=== PATIENT | female | born 1955 | race Caucasian/White ===

== ENCOUNTER 2021-07-17 05:12 | Emergency (ER) | payer SELFPAY ==
[~2021-07-17] VITALS: Ht 165.1 cm; Wt 72.6 kg
--- NOTE | 2021-07-17 06:04 | NUR ---
BIBSELF C/O BACK PAIN RAD TO LEFT LEG S/P HELPING TO CARRY LAST NIGHT. TOOK HYDROCODONE ONE TAB LAST NIGHT NO RELIEF. PT A/OX4. TOLERATING R/A WELL WITH NO SOB.
[2021-07-17] MEDS ORDERED: LIDOCAINE 5% (PATCH) 1 EA PATCH TP SCH (07:30)
[2021-07-17] MEDS ORDERED: ONDANSETRON HCL/PF 4 MG/2 ML VIAL IVP ONE (07:30)
[2021-07-17] MEDS ORDERED: DIAZEPAM 5 MG TABLET PO ONE (07:30)
[2021-07-17] MEDS ORDERED: MORPHINE SULFATE INJ 2 MG/ML DISP.SYRIN IV ONE ×2 (07:30→09:30)
[2021-07-17] MEDS ORDERED: MORPHINE SULFATE INJ 4 MG/ML DISP.SYRIN ONE ×2 (07:52→10:03)
[2021-07-17] MEDS ORDERED: ONDANSETRON HCL/PF 4 MG/2 ML VIAL ONE (07:52)
[2021-07-17] MEDS ORDERED: DIAZEPAM 5 MG TABLET ONE (07:52)
[2021-07-17] MEDS ORDERED: MORPHINE SULFATE INJ 2 MG/ML DISP.SYRIN IM ONE (08:00)
[2021-07-17] MEDS ORDERED: ONDANSETRON 4 MG TAB.RAPDIS ONE (08:10)
[2021-07-17] MEDS ORDERED: ONDANSETRON 4 MG TAB.RAPDIS SL ONE (08:30)
[2021-07-17] MEDS ORDERED: ACETAMINOPHEN 325 MG TABLET PO ONE (09:30)
[2021-07-17] MEDS ORDERED: methylPREDNISolone SOD SUCC 125 MG/2ML VIAL IV ONE (09:30)
[2021-07-17] MEDS ORDERED: ACETAMINOPHEN 325 MG TABLET ONE (09:52)
[2021-07-17] MEDS ORDERED: DEXAMETHASONE 1 MG TABLET PO ONE (10:00)
[2021-07-17] MEDS ORDERED: CYCLOBENZAPRINE 10 MG TABLET PO ONE (10:00)
[2021-07-17] MEDS ORDERED: DEXAMETHASONE 4 MG TABLET ONE (10:04)
[2021-07-17] MEDS ORDERED: CYCLOBENZAPRINE 10 MG TABLET ONE (10:04)
[2021-07-17] MEDS ORDERED: DEXAMETHASONE 1 MG TABLET ONE (10:07)
[2021-07-17] MEDS ORDERED: OXYC-128 PO (11:53)
[2021-07-17] MEDS ORDERED: METH4TAB3 PO (11:53)
[2021-07-17 11:59] VITALS: BP 148/88
== END 2021-07-17 12:01 | disposition home or self-care (01) ==
LOC: ER 05:15
DX: M54.42 Lumbago with sciatica, left side (principal); M48.061 Spinal stenosis, lumbar region without neurogenic claudication; Z88.8 Allergy status to other drugs, medicaments and biological substances; Z88.6 Allergy status to analgesic agent; Z79.899 Other long term (current) drug therapy
CPT/HCPCS: 96372 ×2; 99284; J2270 ×2; J2405; J8540; Q0162

== ENCOUNTER 2021-07-22 22:00 | Emergency (ER) | payer SELFPAY ==
[~2021-07-22] VITALS: Ht 167.6 cm; Wt 70.3 kg
[~2021-07-22 22:00] MED LIST: METH4TAB3 PO; OXYC-128 PO
[2021-07-22 22:50] VITALS: BP 147/100
[2021-07-22] MEDS ORDERED: CYCL5TAB PO (22:55)
[2021-07-22] MEDS ORDERED: CYCLOBENZAPRINE 10 MG TABLET PO ONE (23:00)
[2021-07-22] MEDS ORDERED: MORPHINE SULFATE INJ 2 MG/ML DISP.SYRIN IM ONE (23:00)
[2021-07-22] MEDS ORDERED: MORPHINE SULFATE INJ 2 MG/ML DISP.SYRIN ONE (23:05)
[2021-07-22] MEDS ORDERED: MORPHINE SULFATE INJ 4 MG/ML DISP.SYRIN ONE (23:05)
[2021-07-22] MEDS ORDERED: CYCLOBENZAPRINE 10 MG TABLET ONE (23:05)
--- NOTE | 2021-07-22 23:42 | NUR ---
Patient discharged to home in stable condition. Written and verbal after care instructions given. Patient verbalizes understanding of instruction.
== END 2021-07-22 23:42 | disposition home or self-care (01) ==
LOC: ER 22:14
DX: M54.41 Lumbago with sciatica, right side (principal); Z88.8 Allergy status to other drugs, medicaments and biological substances; Z88.6 Allergy status to analgesic agent; Z79.899 Other long term (current) drug therapy
CPT/HCPCS: 96372; 99283; J2270 ×2

== ENCOUNTER 2021-08-12 16:48 | Emergency (ER) | payer MEDICAID ==
[~2021-08-12] VITALS: Ht 167.6 cm; Wt 72.6 kg
[~2021-08-12 16:48] MED LIST changes: +CYCL5TAB PO
--- NOTE | 2021-08-12 16:55 | NUR ---
BIB SELF C/O R SIDED RIB PAIN S/P GLF ON THE LADDE. PLACED COMFORTABLY IN BED. VITALS CHECKED.
--- NOTE | 2021-08-12 17:31 | NUR ---
XRAY DONE AT BEDSIDE
--- NOTE | 2021-08-12 17:35 | NUR ---
WHEELED PT TO RADIOLOGY DEPT FOR CT SCAN
[2021-08-12] MEDS ORDERED: MORPHINE SULFATE INJ 4 MG/ML DISP.SYRIN ONE (17:52)
[2021-08-12] MEDS ORDERED: MORPHINE SULFATE INJ 2 MG/ML DISP.SYRIN IM ONE (18:00)
[2021-08-12] MEDS ORDERED: LIDO30AD10 TP (19:17)
[2021-08-12] MEDS ORDERED: OXYC-128 PO ×2 (19:17→19:19)
[2021-08-12] MEDS ORDERED: ACET325T53 PO (19:17)
[2021-08-12] MEDS ORDERED: oxyCODONE IR immediate release 5 MG PO PRN (19:30)
[2021-08-12] MEDS ORDERED: LIDOCAINE 5% (PATCH) 1 EA PATCH TP SCH (19:30)
[2021-08-12] MEDS ORDERED: oxyCODONE IR immediate release 5 MG ONE (19:32)
[2021-08-12 19:36] VITALS: BP 156/94
--- NOTE | 2021-08-12 19:36 | NUR ---
Patient discharged to home in stable condition. Written and verbal after care instructions given. Patient verbalizes understanding of instruction. PT ambulatory with a steady gait
== END 2021-08-12 19:38 | disposition home or self-care (01) ==
LOC: ER 16:49
DX: S29.9XXA Unspecified injury of thorax, initial encounter (principal); M54.41 Lumbago with sciatica, right side; Z88.8 Allergy status to other drugs, medicaments and biological substances; Z79.899 Other long term (current) drug therapy; W18.30XA Fall on same level, unspecified, initial encounter; Y93.89 Activity, other specified; Y92.89 Other specified places as the place of occurrence of the external cause; Y99.8 Other external cause status
CPT/HCPCS: 71100; 72131; 96372; 99284; J2270

== ENCOUNTER → 2021-08-17 | Emergency (ER) | payer MEDICAID ==
[~2021-08-17] VITALS: Ht 167.6 cm; Wt 74.8 kg
[~2021-08-17] MED LIST changes: +ACET325T53 PO; +CYCLOBENZAPRINE 10 MG TABLET PO ONE; +LIDO30AD10 TP; +TRAMADOL HCL 50 MG TABLET PO ONE
[2021-08-17 20:30] VITALS: BP 145/87
== END | disposition home or self-care (01) ==
LOC: ER 19:30
DX: M54.41 Lumbago with sciatica, right side (principal); Z87.39 Personal history of other diseases of the musculoskeletal system and connective tissue; Z88.8 Allergy status to other drugs, medicaments and biological substances; Z79.899 Other long term (current) drug therapy

== ENCOUNTER 2022-09-26 20:09 | Emergency (ER) | payer MEDICAID ==
[~2022-09-26] VITALS: Ht 162.6 cm; Wt 68.0 kg
[~2022-09-26 20:09] MED LIST changes: -CYCLOBENZAPRINE 10 MG TABLET PO ONE; -TRAMADOL HCL 50 MG TABLET PO ONE
--- NOTE | 2022-09-26 20:38 | NUR ---
BIBWINNIE FROM HOME C/O SLIP & GLF IN SHOWER THIS MORNING; L WRIST AND NECK PAIN. PT A/OX4. TOLERATING R/A WELL WITH NO RESP DISTRESS. SAFETY MEASURES IN PLACE.
[2022-09-26] MEDS ORDERED: HYDROCODONE/APAP 5/325MG TABLET ONE (20:45)
[2022-09-26] MEDS ORDERED: HYDROCODONE/APAP 5/325MG TABLET PO ONE (21:00)
[2022-09-26] MEDS ORDERED: OXYC-128 PO ×3 (22:51→23:35)
[2022-09-26] MEDS ORDERED: oxyCODONE/APAP (5/325 MG) 1 UDTAB TABLET ONE (22:56)
[2022-09-26] MEDS ORDERED: oxyCODONE/APAP (5/325 MG) 1 UDTAB TABLET PO ONE (23:00)
--- NOTE | 2022-09-26 23:18 | NUR ---
Patient discharged to home in stable condition. Written and verbal after care instructions given. Patient verbalizes understanding of instruction.
[2022-09-27 00:40] VITALS: BP 138/79
[2022-10-02] MEDS ORDERED: OXYC-128 PO (15:25)
== END 2022-09-27 00:43 | disposition home or self-care (01) ==
LOC: ER 20:10
DX: S52.592A Other fractures of lower end of left radius, initial encounter for closed fracture (principal); Z79.899 Other long term (current) drug therapy; Z88.1 Allergy status to other antibiotic agents; W01.0XXA Fall on same level from slipping, tripping and stumbling without subsequent striking against object, initial encounter; Y93.89 Activity, other specified; Y92.89 Other specified places as the place of occurrence of the external cause; Y99.8 Other external cause status
CPT/HCPCS: 72040-TC; 73030-TC; 73090-TC; 73110

== ENCOUNTER 2023-02-28 20:18 | Emergency (ER) | payer SELFPAY ==
[~2023-02-28] VITALS: Ht 165.1 cm; Wt 68.0 kg
[~2023-02-28 20:18] MED LIST changes: +METH4TAB17 PO; +OXYC5CAP18 PO
[2023-02-28] MEDS ORDERED: ACETAMINOPHEN 325 MG TABLET ONE (21:50)
[2023-02-28] MEDS ORDERED: ACETAMINOPHEN 325 MG TABLET PO ONE (22:00)
[2023-02-28] MEDS ORDERED: ACET-2605 PO (22:49)
[2023-02-28] MEDS ORDERED: LIDO30CR TP (22:50)
[2023-02-28 23:01] VITALS: BP 144/75; TEMP 98.8; O2SAT 99
== END 2023-02-28 23:02 | disposition home or self-care (01) ==
LOC: ER 20:22
DX: S20.212A Contusion of left front wall of thorax, initial encounter (principal); Z79.899 Other long term (current) drug therapy; Z88.1 Allergy status to other antibiotic agents; W19.XXXA Unspecified fall, initial encounter; Y93.89 Activity, other specified; Y92.89 Other specified places as the place of occurrence of the external cause; Y99.8 Other external cause status
CPT/HCPCS: 71100-TC

== ENCOUNTER 2023-03-28 23:46 | Emergency (ER) | payer MEDICAID ==
[~2023-03-28] VITALS: Ht 167.6 cm; Wt 72.6 kg
[~2023-03-28 23:46] MED LIST changes: +ACET-2605 PO; +LIDO30CR TP
[2023-03-29] MEDS ORDERED: ACETAMINOPHEN 325 MG TABLET PO ONE (00:30)
[2023-03-29] MEDS ORDERED: ACETAMINOPHEN 325 MG TABLET ONE (01:26)
[2023-03-29 02:31] VITALS: BP 140/79; TEMP 98.1; O2SAT 98
== END 2023-03-29 02:32 | disposition home or self-care (01) ==
LOC: ER 23:59
DX: M54.6 Pain in thoracic spine (principal); Z79.899 Other long term (current) drug therapy; Z88.1 Allergy status to other antibiotic agents
CPT/HCPCS: 72074-TC